=== PATIENT | female | born 1990 | race Caucasian/White ===

== ENCOUNTER 2017-06-14 11:48 | Emergency (ER) | payer OTHER ==
[~2017-06-14] VITALS: Ht 157.5 cm; Wt 74.8 kg
[~2017-06-14 11:48] MED LIST: ACETAMINOPHEN325 MG PO; BACITRACIN30 GM TOP; CIPRO PO; DARVOCET-N 1001 TAB PO; DOXYCYCLINE PO; KEFLEX PO; LORATADINE PO; LORTAB 5/500 TA1 TA1 PO; MEDROL PO; NO MEDICATIONS; PHENERGAN DM1 ML PO; PRENATAL VITAMI1 TA3 PO; PRENATAL1 TA1 PO; ULTRAM PO; VALTREX PO; VICODIN 5/1 TAB 5/50 PO; VOLTAREN75 MG PO
[2017-06-14] MEDS ORDERED: DOLOPHINE HCL5 MG (12:00)
== END 2017-06-14 13:40 | disposition home or self-care (01) ==
LOC: SED 11:48
DX: J02.0 Streptococcal pharyngitis (principal); F17.200 Nicotine dependence, unspecified, uncomplicated
CPT/HCPCS: 87880; 96361; 96372; 96374; 99283; J0561; J1100